=== PATIENT | male | born 1985 | race African-American/Black ===

== ENCOUNTER 2017-09-14 15:32 | Emergency (ER) | payer OTHER ==
[~2017-09-14] VITALS: Ht 182.9 cm; Wt 86.2 kg
[2017-09-14 16:52] LABS: BASOPHILS # (AUTO) 0.1 K/uL (0.0-8.0); BASOPHILS % (AUTO) 1.5 % (0.0-2.0); EOSINOPHILS # (AUTO) 0.1 K/uL (0.0-0.7); EOSINOPHILS % (AUTO) 2.1 % (0.0-7.0); HEMATOCRIT 44.7 % (36.7-47.1); HEMOGLOBIN 15.1 g/dL (12.5-16.3); LYMPHOCYTES # (AUTO) 1.4 K/uL (20.0-40.0); LYMPHOCYTES % (AUTO) 31.8 % (20.5-51.5); MEAN CORPUSCULAR HEMOGLOBIN 29.4 uug (23.8-33.4); MEAN CORPUSCULAR HGB CONC 34 g/dL (32.5-36.3); MONOCYTES # (AUTO) 0.5 K/uL (2.0-10.0); MONOCYTES % (AUTO) 10.8 % (0.0-11.0); NEUTROPHILS # (AUTO) 2.4 K/uL (1.8-8.9); NEUTROPHILS % (AUTO) 53.8 % (38.5-71.5); PLATELET COUNT (AUTO) 226 K/uL (152-348); RED BLOOD CELL COUNT(AUTO) 5.14 MIL/uL (4.06-5.63); WHITE BLOOD COUNT (AUTO) 4.5 K/uL (3.6-10.2)
[2017-09-14] MEDS ORDERED: MAG HYDROX/AL HYDROX/SIMETH 30 ML LIQUID UDC PO ONE (17:00)
[2017-09-14 17:07] LABS: BILIRUBIN,DIRECT 0.1 mg/dL (0.0-0.2); BILIRUBIN,TOTAL 0.4 mg/dL (0.2-1.0); CREATININE 1.3 mg/dL (0.6-1.3); POTASSIUM 4.2 mmol/L (3.5-5.1)
[2017-09-14] MEDS ORDERED: MAG HYDROX/AL HYDROX/SIMETH 30 ML LIQUID UDC ONE (17:12)
--- NOTE | 2017-09-14 17:13 | NUR ---
Patient is awake and alert. patient states he started a high fiber diet a week ago and now has seveere "gas pain" all over his abdomen and upper gastric area. Medication given as ordered.
--- NOTE | 2017-09-14 18:01 | NUR ---
Patient states epigastric discomfort has diminished.
--- NOTE | 2017-09-14 18:30 | NUR ---
DC and follow up instructions given and explained to patient who states he understands all instructions.
[2017-09-14 18:31] VITALS: BP 145/89
== END 2017-09-14 18:34 | disposition home or self-care (01) ==
LOC: ER 15:32
DX: R07.89 Other chest pain (principal); I10 Essential (primary) hypertension
CPT/HCPCS: 36415; 71045; 80048; 80076; 84484; 85025; 85379; 85730; 93005; 99285; A4663; 70030-TC

== ENCOUNTER 2021-04-17 03:22 | Emergency (ER) | payer SELFPAY ==
[~2021-04-17] VITALS: Ht 185.4 cm; Wt 77.1 kg
--- NOTE | 2021-04-17 03:27 | NUR ---
PT BIB [facility] 83 FROM HOME C/O INABILITY TO SLEEP FOR 4 DAYS, A/O X4, NO SOB OR LABORED BREATHIN. AFEBRILE. DENIES CP/PRESSURE. NO GI/ DISTRESS NO N/V/D. CLEAR SPEECH, COMPLETE SENTENCES.
--- NOTE | 2021-04-17 03:30 | NUR ---
Mere CABRAL AT BEDSIDE, MSE IN PROGRESS.
[2021-04-17] MEDS ORDERED: LORAZEPAM 0.5 MG TABLET PO ONE (03:45)
[2021-04-17] MEDS ORDERED: LORAZEPAM 1 MG TABLET ONE (03:46)
[2021-04-17] MEDS ORDERED: LORA2TAB95 PO (03:52)
--- NOTE | 2021-04-17 03:56 | NUR ---
XRAY AT BEDSIDE.
--- NOTE | 2021-04-17 04:55 | NUR ---
Patient discharged to home in stable condition. Written and verbal after care instructions given. Patient verbalizes understanding of instructions. Stressed follow up or return to ER for worsening s/s. Steady gait. No changes in LOC. Picked up by family.
[2021-04-17 04:56] VITALS: BP 136/84
== END 2021-04-17 04:56 | disposition home or self-care (01) ==
LOC: ER 03:24
DX: G47.00 Insomnia, unspecified (principal); R05.9 Cough, unspecified; Z79.899 Other long term (current) drug therapy; Z20.822 Contact with and (suspected) exposure to COVID-19
CPT/HCPCS: 71045; A4663